=== PATIENT | female | born 1990 | race Caucasian/White ===

== ENCOUNTER 2018-10-10 08:07 | Inpatient (IN) | payer OTHER ==
[~2018-10-10] VITALS: Ht 144.8 cm; Wt 60.1 kg
[2018-10-10 08:12] VITALS: Ht 144.8 cm; Wt 60.1 kg
--- NOTE | 2018-10-10 08:13 | TRIAGE ---
OB Triage Datetime Report Generated by CPN: 10/10/2018 08:13 Datetime: 10/10/2018 08:11 EGA: 41.0 Datetime: 10/10/2018 08:00 Assessment Type: Triage Maternal Assessment Level of Consciousness: Keenly Alert, Responsive DTR's/Clonus: DTRs 2+; No Clonus Headache: Denies Blurred Vision: No Respiratory Effort: Unlabored; Regular Rhythm; Equal Expansion Breath Sounds, Left: Clear and Equal Breath Sounds, Right: Clear and Equal Nausea/Vomiting: Denies RUQ Epigastric Pain: Denies Lower Extremities Edema: None Degree: None Upper Extremities Edema: None Degree: None Facial Edema: None Fall Risk Assessment History of Falling: (0) No Secondary Diagnosis: (0) No Ambulatory Aid: (0) Bedrest/Nurse Assist IV Therapy: (0) No Gait: (0) Normal/Bedrest/Immobile Mental Status: (0) Oriented to Own Ability Fall Score: 0 Fall Risk Score Definition: No Risk: No action required Datetime: 10/10/2018 07:55 Time of Arrival: 10/10/2018 07:56 Arrived By: Ambulatory Arrived From: Home Chief Complaint: PT CAME IN FOR POSTDATES Movement: Present Contractions: Denies/Absent Rupture of Membranes: Denies Vaginal Discharge: Denies Recent Sexual Intercouse: Denies Abdominal Trauma: Not Applicable Additional Patient Complaints: NONE Time Provider Notified: 10/10/2018 08:06 Provider Notified: MILESTONE Initial Plan: MONITOR AND VE
[2018-10-10] MEDS ORDERED: PREN-93 PO (08:14)
--- NOTE | 2018-10-10 08:32 | HP ---
Date/Time of Note Date/Time of Note DATE: 10/10/18 TIME: 08:24 OB - History Hx of Present Free Text/Dictation History of present illness: 28-year-old G 1 at 41 week and 0 day(s) presents with induction of labor for postdates. Positive vaginal spotting and mucous plug. Obstetric history: Primipara Gynecology: Last menstrual period approximately 12/20/2017 Past medical history: Noncontributory Surgical history: Contributory Family history: Contributory Social history: negative for tobacco/alcohol/recreational drugs Allergies: Penicillin Medications: vitamins Physical exam Vitals: Stable General: No apparent distress Cardiovascular: Regular rate and rhythm Pulmonary: Clear to auscultation bilaterally Abdomen: Gravid SVE: 2/50/0/mid/mod Bishops 8 Uterus: Slava's 2800g vertex Extremities: Nontender to palpation Psychological: Alert oriented EFM: Category 1/ 125/-martinez/-accels/-decels [place]: none labs: Blood type: A+ H/H: 12.9/38.6 Rubella: immune HepBSAg: nonreactive RPR: NR HIV: negative GC/CT: negative GBS: negative 1h GTT: 106 Assessment/plan: 1. Intrauterine at 41 weeksadmit to labor and delivery. Routine labs and vitals. Continuous electronic monitor and tocometer. Epidural upon patient request. Start with misoprostol p.o. Regular diet until the pat ient is 6 cm. 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 Pitocin to be started next. 2. Penicillin allergy-expectant Past Family/Social History * Past Medical, Surgical, Family and Obstetric Histories reviewed from chart. BRANDON WILHELM MD Oct 10, 2018 08:32
[2018-10-10] MEDS ORDERED: MISOPROSTOL 50 MCG CAPSULE PO ONE (09:00)
[2018-10-10] MEDS: LACTATED RINGER'S 1,000 ML IV SCH ×3 (09:52→17:57)
[2018-10-10] MEDS ORDERED: MISOPROSTOL 200 MCG TAB PR PRN (10:00)
[2018-10-10] MEDS ORDERED: CARBOPROST 250 MCG INJ IM PRN (10:00)
[2018-10-10] MEDS ORDERED: LIDOCAINE 1% (MPF) 30 ML INJ INJ PRN (10:00)
[2018-10-10] MEDS ORDERED: METHYLERGONOVINE 0.2 MG INJ IM PRN (10:00)
[2018-10-10] MEDS ORDERED: OXYTOCIN 30 UNITS/LR 500 ML IV PRN (10:00)
[2018-10-10] MEDS ORDERED: BUTORPHANOL 2 MG INJ IV PRN (10:00)
[2018-10-10] MEDS ORDERED: OXYTOCIN 30 UNITS/LR 500 ML IV SCH ×2 (10:00)
[2018-10-10] MEDS ORDERED: MISOPROSTOL 50 MCG CAPSULE PO PRN (15:00)
[2018-10-10] MEDS: MISOPROSTOL 50 MCG CAPSULE PO PRN ×2 (15:07→19:13)
[2018-10-11] MEDS: MISOPROSTOL 50 MCG CAPSULE PO PRN ×2 (01:23→07:37)
[2018-10-11] MEDS: LACTATED RINGER'S 1,000 ML IV SCH ×3 (02:21→17:56)
[2018-10-11] MEDS ORDERED: FENTAnyl 2MCG/ML-ROPIV 0.2% 100 ML ONE (17:36)
--- NOTE | 2018-10-11 17:38 | PREAC ---
Date/Time of Note Date/Time of Note DATE: 10/11/18 TIME: 17:37 Anesthesia Eval and Record Evaluation Time Pre-Procedure Interview DATE: 10/11/18 TIME: 17:37 Age 28 Sex female NPO: 8 hrs Preoperative diagnosis IUP AT POSTDATES Planned procedure LABOR EPIDURAL Past Medical History Past Medical History: None Surgery & Anesthesia Issues No known issue Meds Anticoagulation: No Beta Ted within 24 hr: No Reason Beta Ted not given: Pt. not on B-Ted Reported Medications Vit No.124/Iron/FA ( Vitamin Tablet) 1 Each Tablet, 1 EACH PO, TAB 10/10/18 Current Medications Lactated Ringer's 1,000 ml @ 125 mls/hr Q8H IV Last administered on 10/11/18at 11:37; Admin Dose 125 MLS/HR; Start 10/10/18 at 09:33 Butorphanol Tartrate (Stadol) 2 mg Q2H PRN IV .PAIN SCALE 6-10; Start 10/10/18 at 10:00 Lidocaine (Xylocaine 1% (Mpf)) 30 ml ONCE PRN INJ .EPISIOTOMY; Start 10/10/18 at 10:00 Oxytocin/Lactated Ringer's 500 ml @ 500 mls/hr ONCE POST IV ; Start 10/10/18 at 10:00 Oxytocin/Lactated Ringer's 500 ml @ 125 mls/hr POST IV ; Start 10/10/18 at 10:00 Oxytocin/Lactated Ringer's 500 ml @ 0 mls/hr ONCE PRN IV .VAGINAL BLEEDING; Start 10/10/18 at 10:00 Methylergonovine Maleate (Methergine) 0.2 mg ONCE PRN IM .VAGINAL BLEEDING; Start 10/10/18 at 10:00 Carboprost Tromethamine (Hemabate) 250 mcg ONCE PRN IM .VAGINAL BLEEDING; Start 10/10/18 at 10:00 Misoprostol (Cytotec) 1,000 mcg ONCE PRN IN .VAGINAL BLEEDING; Start 10/10/18 at 10:00 Misoprostol (Cytotec 50 Mcg Capsule) 50 mcg Q4H PRN PO CERVICAL RIPENING Last administered on 10/11/18at 07:37; Admin Dose 50 MCG; Start 10/10/18 at 19:00 Meds reviewed: Yes Allergies Coded Allergies: Penicillins (Verified Allergy, Unknown, 10/10/18) Allergies Reviewed: Yes Labs/Studies Labs Reviewed: Reviewed by anesthesiologist Result Diagram: 10/10/18 0855 test: Positive Pre-procedure Exam Airway: Adequate mouth opening, Adequate thyromental dist Mallampati: Mallampati II Teeth: Normal Lung: Normal Heart: Normal ASA Physical Status ASA physical status: 2 Emergency: None Planned Anesthetic Neuraxial: Epidural Planned Pain Management Parenteral pain med Pre-operative Attestations Prior to commencing anesthesia and surgery, the patient was re-evaluated, there was verification of: *The patient's identity *The results of appropriate recent lab work and preoperative vital signs *The above evaluation not changing prior to induction *Anesthetic plan, risk benefits, alternative and complications discussed with patient/family; questions answered; patient/family understands, accepts and wishes to proceed. FELISA HAWTHORNE Oct 11, 2018 17:38
[2018-10-11] MEDS ORDERED: NALOXONE (0.4 MG/ML) INJ IV PRN (18:00)
[2018-10-11] MEDS ORDERED: ONDANSETRON 4 MG INJ IV PRN (18:00)
[2018-10-11] MEDS ORDERED: DIPHENHYDRAMINE 50 MG INJ IV PRN (18:00)
--- NOTE | 2018-10-11 18:24 | PAC ---
Date/Time of Note Date/Time of Note DATE: 10/11/18 TIME: 18:24 Post-Anesthesia Notes Post-Anesthesia Note Last documented vital signs 116/78 78 16 97% temp 98.1 Activity: WNL Respiratory function: WNL Cardiovascular function: WNL Mental status: Baseline Pain reasonably controlled: Yes Hydration appropriate: Yes Nausea/Vomiting absent: Yes FELISA HAWTHORNE Oct 11, 2018 18:24
[2018-10-11] MEDS: FENTAnyl 2MCG/ML-ROPIV 0.2% 100 ML BAG EPI SCH (21:10)
[2018-10-12] MEDS ORDERED: OXYTOCIN 30 UNITS/LR 500 ML IV SCH ×2 (00:30→18:58)
[2018-10-12] MEDS: LACTATED RINGER'S 1,000 ML IV SCH ×2 (04:14→06:37)
[2018-10-12] MEDS: FENTAnyl 2MCG/ML-ROPIV 0.2% 100 ML BAG EPI SCH ×2 (04:56→12:25)
[2018-10-12] MEDS ORDERED: CITRIC ACID/NA CITRATE 30 ML CUP PO ONE ×4 (14:00→14:40)
[2018-10-12] MEDS ORDERED: ONDANSETRON 4 MG INJ IV STA (14:09)
--- NOTE | 2018-10-12 14:16 | PREAC ---
Date/Time of Note Date/Time of Note DATE: 10/12/18 TIME: 14:14 Anesthesia Eval and Record Evaluation Time Pre-Procedure Interview DATE: 10/12/18 TIME: 14:14 Age 28 Sex female NPO: 8 hrs Preoperative diagnosis Post Date IUP failure to progress Planned procedure Past Medical History Past Medical History: Includes Heme: Anemia : : (1), Para: (0), Gestational age: (41) Surgery & Anesthesia Issues No known issue Meds Anticoagulation: No Beta Ted within 24 hr: No Reason Beta Ted not given: Pt. not on B-Ted Reported Medications Vit No.124/Iron/FA ( Vitamin Tablet) 1 Each Tablet, 1 EACH PO, TAB 10/10/18 Current Medications Lactated Ringer's 1,000 ml @ 125 mls/hr Q8H IV Last administered on 10/12/18at 06:37; Admin Dose 125 MLS/HR; Start 10/10/18 at 09:33 Butorphanol Tartrate (Stadol) 2 mg Q2H PRN IV .PAIN SCALE 6-10; Start 10/10/18 at 10:00 Lidocaine (Xylocaine 1% (Mpf)) 30 ml ONCE PRN INJ .EPISIOTOMY; Start 10/10/18 at 10:00 Oxytocin/Lactated Ringer's 500 ml @ 500 mls/hr ONCE POST IV ; Start 10/10/18 at 10:00 Oxytocin/Lactated Ringer's 500 ml @ 125 mls/hr POST IV ; Start 10/10/18 at 10:00 Oxytocin/Lactated Ringer's 500 ml @ 0 mls/hr ONCE PRN IV .VAGINAL BLEEDING; Start 10/10/18 at 10:00 Methylergonovine Maleate (Methergine) 0.2 mg ONCE PRN IM .VAGINAL BLEEDING; Start 10/10/18 at 10:00 Carboprost Tromethamine (Hemabate) 250 mcg ONCE PRN IM .VAGINAL BLEEDING; Start 10/10/18 at 10:00 Misoprostol (Cytotec) 1,000 mcg ONCE PRN NE .VAGINAL BLEEDING; Start 10/10/18 at 10:00 Misoprostol (Cytotec 50 Mcg Capsule) 50 mcg Q4H PRN PO CERVICAL RIPENING Last administered on 10/11/18at 07:37; Admin Dose 50 MCG; Start 10/10/18 at 19:00 Naloxone HCl (Narcan) 0.1 mg Q2M PRN IV .RESP RATE; Start 10/11/18 at 18:00; Stop 10/12/18 at 17:59 Diphenhydramine HCl (Benadryl) 25 mg Q6H PRN IV .ITCHING; Start 10/11/18 at 18:00; Stop 10/12/18 at 17:59 Ondansetron HCl (Zofran Inj) 4 mg Q6H PRN IV .NAUSEA/VOMITING; Start 10/11/18 at 18:00; Stop 10/12/18 at 17:59 Fentanyl/ Ropivacaine 100 ml EPIDURAL INFUSION EPI Last administered on 10/12/18at 12:25; Admin Dose 100 ML; Start 10/11/18 at 18:00 Oxytocin/Lactated Ringer's 500 ml @ 0 mls/hr FOR INDUCTION IV Last administered on 10/12/18at 01:37; Admin Dose 1 MLS/HR; Start 10/12/18 at 00:30 Clindamycin HCl/ Dextrose 50 ml @ 50 mls/hr ONCE IVPB ; Start 10/12/18 at 14:30; Status UNV Azithromycin 250 ml @ 250 mls/hr ONCE IV ; Start 10/12/18 at 14:30; Status UNV Gentamicin Sulfate 100 ml @ 200 mls/hr ONCE IVPB ; Start 10/12/18 at 14:30; Status UNV Ondansetron HCl (Zofran Inj) 4 mg ONCE STAT IV ; Start 10/12/18 at 14:09; Stop 10/12/18 at 14:10; Status UNV Citric Acid/ Sodium Citrate (Bicitra) 30 ml ONCE ONCE PO ; Start 10/12/18 at 14:10; Stop 10/12/18 at 14:11; Status UNV Meds reviewed: Yes Allergies Coded Allergies: Penicillins (Verified Allergy, Unknown, 10/10/18) Allergies Reviewed: Yes Labs/Studies Labs Reviewed: Reviewed by anesthesiologist Result Diagram: 10/10/18854 test: Positive Studies: ECG (n/a), CXR (n/a) Pre-procedure Exam Airway: Adequate mouth opening, Adequate thyromental dist Mallampati: Mallampati II Teeth: Normal Lung: Normal Heart: Normal ASA Physical Status ASA physical status: 2 Emergency: None Planned Anesthetic Neuraxial: Spinal, Epidural Planned Pain Management Epidural, Sub-arachniod narcotics, Parenteral pain med Pre-operative Attestations Prior to commencing anesthesia and surgery, the patient was re-evaluated, there was verification of: *The patient's identity *The results of appropriate recent lab work and preoperative vital signs *The above evaluation not changing prior to induction *Anesthetic plan, risk benefits, alternative and complications discussed with patient/family; questions answered; patient/family understands, accepts and wishes to proceed. TAYLOR WEBER MD Oct 12, 2018 14:16
[2018-10-12] MEDS ORDERED: CITRIC ACID/NA CITRATE 30 ML CUP ONE (14:24)
[2018-10-12] MEDS ORDERED: ONDANSETRON 4 MG INJ IV ONE (14:30)
[2018-10-12] MEDS ORDERED: AZITHROMYCIN 500MG/NS (PMX) 250 ML IV SCH (14:30)
[2018-10-12] MEDS ORDERED: GENTAMICIN 120 MG/NS (PMX) 100 ML IVPB SCH (14:30)
[2018-10-12] MEDS ORDERED: CLINDAMYCIN 900 MG/D5W (PMX) 50 ML IVPB SCH (14:30)
[2018-10-12] MEDS ORDERED: GENTAMICIN 120 MG/NS (PMX) 100 ML IVPB ONE (14:31)
[2018-10-12] MEDS ORDERED: OXYTOCIN 10 UNIT INJ ONE (14:57)
[2018-10-12] MEDS ORDERED: DEXAMETHASONE 4 MG/ML 1 ML INJ ONE (15:16)
[2018-10-12] MEDS ORDERED: KETOROLAC 30 MG INJ ONE (15:16)
[2018-10-12] MEDS ORDERED: METOCLOPRAMIDE 10 MG INJ ONE (15:16)
[2018-10-12] MEDS ORDERED: ROPIVACAINE 0.5 % 30 ML VIAL ONE (15:18)
[2018-10-12] MEDS ORDERED: morphine SULFATE/PF (10 MG/10 ML) INJ ONE (15:18)
[2018-10-12] MEDS ORDERED: EPHEDrine 25 MG/5 ML SYG ONE (15:22)
[2018-10-12] MEDS ORDERED: PHENYLephrine (100 MCG/ML) 10ML SYG ONE (15:22)
[2018-10-12] MEDS ORDERED: morphine 2 MG INJ IV PRN ×2 (15:30)
[2018-10-12] MEDS ORDERED: NALOXONE (0.4 MG/ML) INJ IV PRN (15:30)
[2018-10-12] MEDS ORDERED: NALBUPHINE HCL (10 MG/1 ML) INJ IV PRN (15:30)
[2018-10-12] MEDS ORDERED: ONDANSETRON 4 MG INJ IV PRN (15:30)
[2018-10-12] MEDS ORDERED: HYDROmorphONE 0.5 MG/0.5 ML SYG IV PRN ×2 (15:30)
[2018-10-12] MEDS ORDERED: KETOROLAC 30 MG INJ IV PRN (15:30)
[2018-10-12] MEDS ORDERED: DIPHENHYDRAMINE 50 MG INJ IV PRN (15:30)
[2018-10-12] MEDS ORDERED: ACETAMINOPHEN 500 MG TAB PO PRN (15:30)
--- NOTE | 2018-10-12 15:38 | PAC ---
Date/Time of Note Date/Time of Note DATE: 10/12/18 TIME: 15:37 Post-Anesthesia Notes Post-Anesthesia Note Last documented vital signs T: 98.0 Activity: WNL Respiratory function: WNL Cardiovascular function: WNL Mental status: Baseline Pain reasonably controlled: Yes Hydration appropriate: Yes Nausea/Vomiting absent: Yes TAYLOR WEBER MD Oct 12, 2018 15:37
--- NOTE | 2018-10-12 17:09 | OPR ---
Operative Report Planned Procedure Procedure date Oct 12, 2018 Procedure(s) Primary low transverse delivery Performed by see signature line Nurse Transitional: LIZ BELLO MD Anesthesiologist: TAYLOR WEBER MD Pre-procedure diagnosis 28 years old 1 with single intrauterine at 41 weeks and 2 days with arrest of descent [id number] Anesthesia Type: [id number] spinal Post-Procedure Post-procedure diagnosis 28-year-old 1 with single intrauterine at 41 weeks and 2 days with arrest of descent Findings 1. Normal uterus, fallopian tubes and ovaries 2. Viable male in cephalic presentation. 7 at one minute and 9 in 5 minutes. Weight: 6 pounds 14 ounces, 3125 g. Time of delivery: 15:01 3. Placenta with three vessel cord 4. Amniotic fluid - Clear Estimated Blood Loss: 500 - 600 mls Specimen(s) none Grafts/Implant(s) none Complication(s) none Pt Condition post procedure: stable Disposition: PACU Procedure Description INDICATION AND HISTORY: A 28-year-old 1 with single intrauterine at 41 weeks and 2 days with arrest of descent. The risk of delivery including but not limited to bleeding, infection, injury to other organs (bowel, bladder, ureter, vessels, nerves), injury to fetus, blood transfusion, blood transfusion related infection, risk of anesthesia, adhesion, needs for future , removal of u terus or any other indicated surgery was discussed with the patient and her family. She expressed understanding. All of her questions were answered. She signed the informed consent. DESCRIPTION OF OPERATION: The patient was taken to the operating room, where she was identified and the procedure was verified. The patient received 900 mg clindamycin, gentamicin 80 mg and a azithromycin 500 mg IV 30 minutes prior to surgery. Spinal anesthesia was placed. The patient placed in the dorsal supine position with a left tilt. The heart rate was 140 bpm. The patient was then prepped and draped in the normal sterile fashion. A Pfannenstiel skin incision was made and carried down to the fascia with knife. The fascia was incised in the midline and the fascial incision was carried laterally with knife. The superior portion of the fascial incision was then grasped with Paulo clamps and tented up and dissected off the underlying rectus muscle with sharp dissection. The lower portion of the fascial incision was then made in a similar fashion. The rectus muscle was and the peritoneum was entered. The peritoneal incision was then stretched and a bladder blade was inserted. The utero-vesical peritoneal reflection was incised transversely and the bladder flap was reflected inferiorly.Then, an incision was made in the lower uterine segment in a transverse fashion with a knife and extended bluntly. The was delivered atraumatically in cephalic presentation with the above findings. The umbilical cord was clamped and cut. The neonatology resuscitation team was present and the baby was handed to them. A cord blood sample was obtained for further evaluation. The placenta and membrane, which appeared normal were Removed. The uterus was exteriorized and cleared of all clot and debris. The uterus was then closed in a two layer fashion with 0-Monocryl. At the time of closure, hemostasis was noted. The gutters were irrigated. The peritoneum was reapproximated with 3-0 Vicryl. The muscle was reapproximated with 3-0 Vicryl. The fascia was approximated with 0-Vicryl in a running fashion. The subcutaneous tissue was re approximated with 3-0 vicryl. The skin was closed with 4-0 Monocryl. All instruments, sponges and needle counts were correct x3. The patient tolerated the procedure well. She transferred to the recovery room in stable condition. JENNIFER LANIER Oct 12, 2018 17:09
[2018-10-12 18:52] VITALS: BP 122/64; RESP 18
[2018-10-12] MEDS: DEXTROSE 5%-LR 1,000 ML IV SCH (18:58)
[2018-10-12] MEDS ORDERED: MISOPROSTOL 200 MCG TAB PR PRN (19:00)
[2018-10-12] MEDS ORDERED: MAGNESIUM HYDROXIDE 30ML CUP PO PRN (19:00)
[2018-10-12] MEDS ORDERED: LANOLIN HPA 1 PKT TOP PRN (19:00)
[2018-10-12] MEDS ORDERED: METHYLERGONOVINE 0.2 MG INJ IM PRN (19:00)
[2018-10-12] MEDS ORDERED: CARBOPROST 250 MCG INJ IM PRN (19:00)
[2018-10-12] MEDS ORDERED: OXYTOCIN 30 UNITS/LR 500 ML IV PRN (19:00)
[2018-10-12] MEDS ORDERED: METHYLERGONOVINE 0.2 MG TAB PO PRN (19:00)
[2018-10-12 20:00] VITALS: BP 127/73; PULSE 71; RESP 19
[2018-10-12] MEDS ORDERED: SENNA/DOCUSATE NA (8.6MG/50MG) TAB PO SCH (21:00)
[2018-10-12] MEDS ORDERED: IBUPROFEN 800 MG TAB PO SCH (22:00)
[2018-10-13] MEDS: DEXTROSE 5%-LR 1,000 ML IV SCH ×3 (02:58→18:58)
[2018-10-13] MEDS: LACTATED RINGER'S 1,000 ML IV SCH ×2 (03:59→12:22)
[2018-10-13 04:00] VITALS: BP 105/55; PULSE 78; RESP 19
[2018-10-13 08:15] VITALS: BP 102/55; PULSE 80; RESP 18
--- NOTE | 2018-10-13 09:53 | PN ---
Date/Time of Note Date/Time of Note DATE: 10/13/18 TIME: 09:52 OB Subjective Subjective Subjective Patient without complaints.Tolerating regular diet. Breast feeding. Ambulating. Vtal signs stable Abdomen fundus firm below umbilicus Breast normal Incision C/D/I dressing in place Extremities nontender to palpation Assessment/plan: 1. postoperative cs day 1-routine care. h/h 11/33.4 MILESTONE,BRANDON JEAN Oct 13, 2018 09:53
[2018-10-13] MEDS: SENNA/DOCUSATE NA (8.6MG/50MG) TAB PO SCH ×2 (09:55→21:11)
[2018-10-13] MEDS ORDERED: DIPHTH/TET/ACEL PERTUSS (ADULT) 0.5 ML VIAL IM* ONE (11:00)
[2018-10-13] MEDS ORDERED: HYDROCODONE/APAP (5/325) TAB PO PRN (11:00)
[2018-10-13 11:24] VITALS: BP 106/58; PULSE 80; RESP 16
[2018-10-13] MEDS ORDERED: IBUPROFEN 800 MG TAB PO SCH ×2 (14:00→22:00)
[2018-10-13] MEDS ORDERED: HYDROCODONE/APAP (5/325) TAB GTB SCH (14:00)
[2018-10-13 16:00] VITALS: BP 116/65; PULSE 76; RESP 18
[2018-10-13 20:55] VITALS: BP 106/57; PULSE 99; RESP 18
[2018-10-14] MEDS: HYDROCODONE/APAP (5/325) TAB PO PRN (02:57)
[2018-10-14] MEDS: DEXTROSE 5%-LR 1,000 ML IV SCH ×3 (02:58→18:58)
[2018-10-14 03:00] VITALS: BP 104/67; PULSE 65; RESP 18
[2018-10-14] MEDS: IBUPROFEN 800 MG TAB PO SCH ×4 (06:00→21:33)
[2018-10-14 07:25] VITALS: BP 100/62; PULSE 68; RESP 18
[2018-10-14] MEDS: SENNA/DOCUSATE NA (8.6MG/50MG) TAB PO SCH ×2 (09:57→21:33)
--- NOTE | 2018-10-14 10:53 | PN ---
Date/Time of Note Date/Time of Note DATE: 10/14/18 TIME: 10:49 OB Subjective Subjective Subjective passing flatus noc/o OB Objective Objective Objective vss afebrile abdomen soft wound dry calf neg for tenderness po 16.200/11.0,33.4/176 lochia min OB Assessment/Plan Other Assessment: stable post primary c/s #2 Plan: Expectant Management AURELIO AVILEZ MD Oct 14, 2018 10:53
[2018-10-14 17:02] VITALS: BP 96/55; PULSE 68; RESP 18
[2018-10-14 21:30] VITALS: BP 99/67; PULSE 69; RESP 18
[2018-10-15] MEDS: DEXTROSE 5%-LR 1,000 ML IV SCH (02:58)
[2018-10-15 04:00] VITALS: BP 103/66; PULSE 65; RESP 18
[2018-10-15] MEDS: IBUPROFEN 800 MG TAB PO SCH ×2 (05:58→14:53)
[2018-10-15 08:00] VITALS: BP 105/65; PULSE 66; RESP 16
[2018-10-15] MEDS ORDERED: DIPHTH/TET/ACEL PERTUSS (ADULT) 0.5 ML VIAL IM* ONE ×2 (08:00→09:00)
[2018-10-15] MEDS: SENNA/DOCUSATE NA (8.6MG/50MG) TAB PO SCH (08:29)
[2018-10-15] MEDS: HYDROCODONE/APAP (5/325) TAB PO PRN (08:33)
[2018-10-15] MEDS ORDERED: MEASLES,MUMPS,RUBELLA VACCINE INJ SC* ONE (09:00)
--- NOTE | 2018-10-15 13:08 | DS ---
Date/Time of Note Date/Time of Note DATE: 10/15/18 TIME: 13:06 Obstetrical Discharge Record Final Diagnosis Final Diagnosis: Term delivered Other Final Diagnosis Postop day #3 Status post primary Patient stable and afebrile Positive flatus and voiding and tolerating regular diet and ambulating Vital signs stable Hematology - 72 Hrs Test 10/13/18 04:30 Hematocrit 33.4 % (37.0-47.0) L Hemoglobin 11.0 g/dl (12.0-16.0) L Mean Corpuscular Hemoglobin 30.3 pg (29.0-33.0) Mean Corpuscular Hemoglobin Concent 32.9 g/dl (32.0-37.0) Mean Corpuscular Volume 92.0 fl (82.0-101.0) Mean Platelet Volume 9.7 fl (7.4-10.4) Platelet Count 176 10^3/UL (140-415) # Red Blood Count 3.63 10^6/ul (4.20-5.40) L Red Cell Distribution Width 14.3 % (11.5-14.5) White Blood Count 16.2 10^3/ul (4.8-10.8) #H Abdomen soft, fundus firm Incision clean, dry, intact Extremities nontender Assessment and plan Patient stable and doing well Plan to discharge home Prescription for pain meds were given Patient instructed to follow-up with COUPLES THERAPIST in 1-2 and 6 weeks Section Section: Primary Condition on Discharge Physical Assessment Last Vitals: VS - Last 72 Hours, by Label Date Temp Pulse Resp B/P (MAP) Pulse Ox O2 O2 Flow FiO2 Time Delivery Rate 10/15/18 97.5 66 16 105/65 Room Air 08:00 (78) 10/15/18 97.8 65 18 103/66 Room Air 04:00 (78) 10/14/18 98.2 69 18 99/67 (78) Room Air 21:30 10/14/18 97.4 68 18 96/55 (69) 17:02 10/14/18 98.0 68 18 100/62 Room Air 07:25 (75) 10/14/18 97.8 65 18 104/67 Room Air 03:00 (79) 10/13/18 97.7 99 18 106/57 Room Air 20:55 (73) 10/13/18 98.5 76 18 116/65 99 Room Air 16:00 (82) 10/13/18 98.5 80 16 106/58 100 Room Air 11:24 (74) 10/13/18 98.3 80 18 102/55 99 Room Air 08:15 (71) 10/13/18 98.4 78 19 105/55 Room Air 04:00 (72) 10/12/18 98.3 71 19 127/73 Room Air 20:00 (91) 10/12/18 97.9 18 122/64 97 Room Air 18:52 (83) Voiding: Yes Bowel Movement: Yes Breast: Soft, non-tender Fundus: Firm Calf Tenderness: No Patient Condition: Good Copies To: CC: JENNIFER LANIER ; ALEXEI HUNT MD Oct 15, 2018 13:08
--- NOTE | 2018-10-16 15:29 | DELSUM ---
Delivery Summary A-C Datetime Report Generated by CPN: 10/16/2018 15:28 DELIVERY PERSONNEL Expressive Therapist: Eileen Solis MATERNAL INFORMATION Delivery Anesthesia: Epidural Medications in Delivery: see anesthesia records Delivery QBL (ml): 700 Placenta Cultured: No Maternal Complications: None LABOR SUMMARY EDC: 10/03/2018 00:00 No. Babies in Womb: 1 Attempted: No Labor Anesthesia: None LABOR INFORMATION Reason for Induction: Other Onset of Labor: 10/11/2018 14:00 Complete Dilatation: 10/12/2018 08:56 Cervical Ripening Agents: Cytotec @ 50 MCG, PO GIVEN, # 4 DOSE Group B Beta Strep: Negative Antibiotics # of Doses: 3 Antibiotics Time of Last Dose: 10/12/2018 14:40 Steroids Given: None Reason Steroids Not Administered: Not Applicable MEMBRANES Membranes Rupture Method: Spontaneous Rupture of Membranes: 10/12/2018 01:12 Length of Rupture (hr): 13.82 Amniotic Fluid Color: Clear Amniotic Fluid Amount: Small Amniotic Fluid Odor: None STAGES OF LABOR Stage 1 hr: 18 Stage 1 min: 56 Stage 2 hr: 6 Stage 2 min: 5 Stage 3 hr: 0 Stage 3 min: 1 Total Time in Labor hr: 25 Total Time in Labor min: 2 CSECTION DELIVERY Primary Indication: Arrest of Descent Secondary Indication: N/A CSection Urgency: Non Elective CSection Incidence: Primary Labor: Labor Elective: N/A CSection Incision: Lower Uterine Transverse BABY A INFORMATION Infant Delivery Date/Time: 10/12/2018 15:01 Method of Delivery: Born in Route : No : N/A Forceps: N/A Vacuum Extraction: N/A Shoulder Dystocia : No SHOULDER DYSTOCIA BABY A Infant Delivery Date/Time: 10/12/2018 15:01 PRESENTATION/POSITION BABY A Presentation: Cephalic Cephalic Presentation: Vertex Breech Presentation: N/A PLACENTA INFORMATION BABY A Placenta Delivery Time : 10/12/2018 15:02 Placenta Method of Delivery: Manual Removal Placenta Status: Delivered SCORES BABY A Heart Rate 1 min: >100 bpm Resp Effort 1 min: Slow, Irregular Reflex Irritability 1 min: Cough/Sneeze/Pulls Away Muscle Tone 1 min: Some Flexion of Extrem Color 1 min: Body [place], Extremit Blue Resuscitation Effort 1 min: Tactile Stimulation SCORE 1 MIN: 7 Heart Rate 5 min: >100 bpm Resp Effort 5 min: Good Cry Reflex Irritability 5 min: Cough/Sneeze/Pulls Away Muscle Tone 5 min: Active Motion Color 5 min: Body [place], Extremit Blue Resuscitation Effort 5 min: Tactile Stimulation SCORE 5 MIN: 9 INFORMATION BABY A Gestational Age at Delivery: 41.2 Gestational Status: Late Term- 41- 41.6 Weeks Infant Outcome : Liveborn, with signs of life Infant Condition : Stable Infant Sex: Male IDENTIFICATION/MEDS BABY A ID Band Number: [id number] ID Band Location: Right Leg; Left Arm Sensor Applied: Yes Sensor Number: [id number] Sensor Location : Cord Clamp Vitamin K Given : Not Given Erythromycin Given: Not Given WEIGHT/LENGTH BABY A Infant Birthweight (gm): 3125 Weight (lb): 6 Infant Weight (oz): 14 Length (in): 20.50 Infant Length (cm): 52.07 CORD INFORMATION BABY A No. Cord Vessels: 3 Nuchal Cord : N/A Cord Blood Taken: Yes Infant Suction: Mouth; Nose ASSESSMENT BABY A Complications: None Physical Findings at Delivery: Molding of the Head; Within Normal Limits Respirations: Appears Normal Aluminum Welder/ALS Called : Yes Care By: Gabriel MUHAMMAD Transferred To: Remains with Mother
== END 2018-10-15 15:28 | disposition home or self-care (01) | DRG 788 ==
LOC: OBT 08:07 → L-D 08:07 → OBT 08:24 → L-D 08:25 → MS1 10-12 18:39 → PP1 10-14 12:12
PROVIDERS: ADMIT Obstetrics & Gynecology; ATTEND Obstetrics & Gynecology
PROC: 10D00Z1 Extraction of Products of Conception, Low, Open Approach (ICD-10-PCS; principal; 2018-10-12)
PROC: 3E033VJ Introduction of Other Hormone into Peripheral Vein, Percutaneous Approach (ICD-10-PCS; 2018-10-12)
DX: O48.0 Post-term pregnancy (principal); O32.4XX0 Maternal care for high head at term, not applicable or unspecified; Z3A.41 41 weeks gestation of pregnancy; Z37.0 Single live birth
CPT/HCPCS: 62322; 85025; 85610; 85730; 86592; 86850; 86900; 86901; 90715; 99464; G0463; J0456; J1100; J1580; J1885; J2274; J2370; J2405; J2590; J2765; J2795; J3010; J7120; J7121